=== PATIENT | female | born 1980 | race Caucasian/White ===

== ENCOUNTER 2016-12-06 16:24 | Emergency (ER) | payer BC ==
[2016-12-06 17:43] LABS: HEMOGLOBIN 14.5 gm/dl (12.3-15.3); RED BLOOD COUNT 4.95 M/UL (4.00-5.10); WHITE BLOOD COUNT 11.3 K/UL (4.5-11.0)
[2016-12-06 18:01] LABS: BUN/CREATININE RATIO 25 (0-10)
== END 2016-12-06 18:32 | disposition home or self-care (01) ==
LOC: ER1 16:24
PROVIDERS: Physician Assistant Medical
DX: J20.9 Acute bronchitis, unspecified (principal)
CPT/HCPCS: 36415; 71020; 80053; 81001; 84703; 85025; 87081; 87880; 94640; 94664; 96372; 99283; J0696; J1100

== ENCOUNTER → 2022-01-19 | Outpatient (CLI) | payer OTHER ==
[~2022-01-19] MED LIST: IMITREX25 MG PO; MACROBID 100 M100 MG PO; XARELTO15 PACK PO
== END ==
LOC: RAD 14:55
DX: M54.2 Cervicalgia (principal); M47.812 Spondylosis without myelopathy or radiculopathy, cervical region
CPT/HCPCS: 72040